=== PATIENT | female | born 1960 | race Two or more races ===

== ENCOUNTER 2020-06-15 11:29 | Emergency (ER) | payer BC ==
[~2020-06-15] VITALS: Ht 167.6 cm; Wt 72.6 kg
[~2020-06-15 11:29] MED LIST: DULO60CA45 PO; TRAZ300T2 PO
--- NOTE | 2020-06-15 11:35 | NUR ---
PT BIB HER BOYFRIEND. C/O SHORT TERM MEMORY LOSS PER HER BF. BF STATES THAT PT DOES NOT REMEMBER STUFF THAT HAS HAPPENED THIS MORNING AND WOUND KEEP ASKING THE SAME QUESTIONS OVER AND OVER EVEN THOUGH SHE JUST ASKED THE SAME QUESTION 2 MIN AGO. PT AND BF DENIES ANY NEUROLOGICAL HX OR ANY TRAUMA TO THE HEAD. VS CHECKED. AWAITING MD DUKES.
[2020-06-15] MEDS ORDERED: LABETALOL 20 MG/4 ML VIAL IV ONE (12:00)
--- NOTE | 2020-06-15 12:00 | NUR ---
MY IN THE ROOM ASSESSING PT
[2020-06-15 12:16] LABS: BASOPHILS % (AUTO) 0.8 % (0.0-2.0); EOSINOPHILS % (AUTO) 0.4 % (0.0-6.0); HEMATOCRIT 44 % (33-45); HEMOGLOBIN 14.6 g/dL (11.5-14.8); LYMPHOCYTES # (AUTO) 1.5 /CMM (0.8-4.8); MEAN CORPUSCULAR HGB CONC 33 g/dl (31.0-36.0); MEAN CORPUSCULAR VOLUME 94 fL (82-100); MONOCYTES # (AUTO) 0.2 /CMM (0.1-1.30); NEUTROPHILS # (AUTO) 3.8 /CMM (1.8-8.9); NEUTROPHILS % (AUTO) 68.8 % (43.0-81.0); PLATELET COUNT (AUTO) 307 /CMM (150-450); RED BLOOD CELL COUNT(AUTO) 4.67 MIL/uL (4.0-5.2); WHITE BLOOD COUNT (AUTO) 5.6 K/uL (4.3-11.0)
[2020-06-15] MEDS ORDERED: LABETALOL HCL IV 100MG VIAL ONE (12:21)
[2020-06-15 12:23] LABS: CALCIUM, SERUM 9.5 mg/dL (8.5-10.1); CARBON DIOXIDE 29 mmol/L (21-32); CHLORIDE 98 mmol/L (98-107); CREATININE 0.8 mg/dL (0.6-1.3); GLUCOSE 128 mg/dL (74-106); POTASSIUM 4.1 mmol/L (3.5-5.1); SODIUM SERUM 135 mmol/L (136-145); UREA NITROGEN, BLOOD 16 mg/dL (7-18)
[2020-06-15 12:29] LABS: ACETAMINOPHEN < 2 ug/ml (10-30); ALANINE AMINOTRANSFERASE 33 U/L (12-78); ALCOHOL, BLOOD < 3 mg/dL (0-0); ALKALINE PHOSPHATASE 79 U/L (46-116); ASPARTATE AMINOTRANSFERASE 21 U/L (15-37); BILIRUBIN,DIRECT 0.1 mg/dL (0.0-0.2); BILIRUBIN,TOTAL 0.3 mg/dL (0.2-1.0); TOTAL PROTEIN, SERUM 8.4 g/dL (6.4-8.2)
--- NOTE | 2020-06-15 12:32 | NUR ---
XRAY BY BEDSIDE
[2020-06-15 12:56] LABS: THYROID STIMULATING HORMONE 1.15 uIU/mL (0.358-3.74)
--- NOTE | 2020-06-15 13:24 | NUR ---
BP RECHECKED 162/101 HR 77. MADE AWARE
[2020-06-15] MEDS ORDERED: LABETALOL HCL IV 100MG VIAL IV ONE (13:30)
--- NOTE | 2020-06-15 13:40 | NUR ---
BP RECHECKED NOTED AT 134/94 HR 77. PER MD, PT OKAY TO GO HOME.
--- NOTE | 2020-06-15 13:41 | NUR ---
Patient discharged to home in stable condition. Written and verbal after care instructions given. Patient verbalizes understanding of instruction. IV removed. Catheter intact and site benign. Pressure and 4x4 applied to site. No bleeding noted.
[2020-06-15 13:42] VITALS: BP 134/94
== END 2020-06-15 13:42 | disposition home or self-care (01) ==
LOC: ER 11:35
DX: G45.4 Transient global amnesia (principal); R41.0 Disorientation, unspecified; I10 Essential (primary) hypertension; Z79.899 Other long term (current) drug therapy
CPT/HCPCS: 36415; 70450; 71045; 80048; 80076; 80299; 80320; 82140; 84443; 85025; 96374; 96376; 99285; J3490 ×2; G0480